=== PATIENT | male | born 1940 | race Caucasian/White ===

== ENCOUNTER 2019-08-21 13:31 | Outpatient (CLI) | payer MEDICARE | END 2019-08-21 23:59 | disposition home or self-care (01) | LOC: PETCFH 13:31 | PROVIDERS: ATTEND Specialist | DX: R91.8 Other nonspecific abnormal finding of lung field (principal); C44.91 Basal cell carcinoma of skin, unspecified | CPT/HCPCS: 78816; A9552 ==

== ENCOUNTER 2019-09-06 07:39 | Day surgery (SDC) | payer MEDICARE ==
[~2019-09-06] VITALS: Ht 179.1 cm; Wt 102.5 kg
[2019-09-06] MEDS ORDERED: SOLI5TAB2 PO (08:15)
[2019-09-06 08:16] VITALS: BP 133/76
[2019-09-06] MEDS ORDERED: SODIUM CHLORIDE 0.9% 1,000 ML IV SCH (09:00)
[2019-09-06] MEDS ORDERED: NALOXONE 1 MG/ML, 2ML ONE (09:59)
[2019-09-06] MEDS ORDERED: FLUMAZENIL 0.1 MG/1 ML, 5ML ONE (09:59)
[2019-09-06] MEDS ORDERED: FENTANYL PF 100 MCG/2ML ONE ×2 (09:59)
[2019-09-06] MEDS ORDERED: MIDAZOLAM 1 MG/ML, 5ML ONE (09:59)
== END 2019-09-06 13:25 | disposition home or self-care (01) ==
LOC: OUT 07:39
PROVIDERS: ATTEND Specialist
DX: C43.39 Malignant melanoma of other parts of face (principal)
CPT/HCPCS: 32405; 71045; 77012; 88172; 88305; 99156; 99157; J2250; J3010; J7030; J2310

== ENCOUNTER → 2019-09-09 | Outpatient (CLI) | payer MEDICARE ==
[~2019-09-09] MED LIST: GADOTERATE 10 MMOL/20 ML SYR ONE; SOLI5TAB2 PO
== END | disposition home or self-care (01) ==
LOC: CFH 08:25
PROVIDERS: ATTEND Specialist
DX: C43.30 Malignant melanoma of unspecified part of face (principal); G31.9 Degenerative disease of nervous system, unspecified
CPT/HCPCS: 70553; A9575

== ENCOUNTER → 2019-12-10 | Outpatient (CLI) | payer MEDICARE ==
[~2019-12-10] MED LIST changes: -GADOTERATE 10 MMOL/20 ML SYR ONE
== END | disposition home or self-care (01) ==
LOC: PETCFH 10:04
PROVIDERS: ATTEND Specialist
DX: C43.30 Malignant melanoma of unspecified part of face (principal)
CPT/HCPCS: 78816; A9552

== ENCOUNTER → 2020-03-31 | Outpatient (CLI) | payer MEDICARE ==
[~2020-03-31] MED LIST changes: +OMNIPAQUE 350 MG/ML, 100ML BOTTLE ONE
== END | disposition home or self-care (01) ==
LOC: CFH 09:15
PROVIDERS: ATTEND Specialist
DX: C44.92 Squamous cell carcinoma of skin, unspecified (principal); C44.91 Basal cell carcinoma of skin, unspecified; R91.8 Other nonspecific abnormal finding of lung field
CPT/HCPCS: 71260; 74160; Q9967

== ENCOUNTER → 2020-07-21 | Outpatient (CLI) | payer MEDICARE | END | disposition home or self-care (01) | LOC: CFH 07:58 | PROVIDERS: ATTEND Specialist | DX: C44.91 Basal cell carcinoma of skin, unspecified (principal); C44.92 Squamous cell carcinoma of skin, unspecified; K76.0 Fatty (change of) liver, not elsewhere classified; R91.1 Solitary pulmonary nodule; M51.34 Other intervertebral disc degeneration, thoracic region; N28.1 Cyst of kidney, acquired | CPT/HCPCS: 71260; 74160; 82565; Q9967 ==

== ENCOUNTER → 2020-10-27 | Outpatient (CLI) | payer MEDICARE | END | disposition home or self-care (01) | LOC: CFH 08:58 | PROVIDERS: ATTEND Nurse Practitioner | DX: C44.91 Basal cell carcinoma of skin, unspecified (principal); C44.92 Squamous cell carcinoma of skin, unspecified; R91.1 Solitary pulmonary nodule; J84.10 Pulmonary fibrosis, unspecified; N28.1 Cyst of kidney, acquired | CPT/HCPCS: 71260; 74160; Q9967 ==

== ENCOUNTER → 2021-02-09 | Outpatient (CLI) | payer MEDICARE | END | disposition home or self-care (01) | LOC: CFH 08:29 | PROVIDERS: ATTEND Specialist | DX: C43.30 Malignant melanoma of unspecified part of face (principal); R91.1 Solitary pulmonary nodule | CPT/HCPCS: 71260; 74160; 82565; Q9967 ==

== ENCOUNTER → 2021-06-14 | Outpatient (CLI) | payer MEDICARE | END | disposition home or self-care (01) | LOC: CFH 08:45 | PROVIDERS: ATTEND Specialist | DX: C44.91 Basal cell carcinoma of skin, unspecified (principal); C44.92 Squamous cell carcinoma of skin, unspecified; C78.00 Secondary malignant neoplasm of unspecified lung; R91.1 Solitary pulmonary nodule; N28.1 Cyst of kidney, acquired; Z79.899 Other long term (current) drug therapy | CPT/HCPCS: 71260; 74160; Q9967 ==